=== PATIENT | female | born 1935 | race Asian ===

== ENCOUNTER 2018-02-02 19:24 | Observation (INO) | payer MEDICARE ==
[~2018-02-02] VITALS: Ht 162.6 cm; Wt 53.2 kg
[2018-02-02 21:00] LABS: Anion Gap 11 mmol/L (6-16); Blood Urea Nitrogen 20 mg/dL (8-24); Bun/Creatinine Ratio 28.9 (12.0-20.0); CO2, Blood 24 mmol/L (21-32); Calcium, Blood 8.1 mg/dL (8.5-10.1); Chloride, Blood 108 mmol/L (98-108); Creatinine, Blood 0.69 mg/dL (0.40-1.00); Glomerular Filtration Rate >60 (60-); Glucose, Blood 99 mg/dL (70-99); Magnesium, Blood 2.2 mg/dL (1.6-2.4); Potassium, Blood 3.8 mmol/L (3.5-5.5); Sodium, Blood 143 mmol/L (136-145); Troponin I <0.015 ng/mL (0.000-0.040)
[2018-02-02] MEDS ORDERED: ALEN70 PO (23:10)
[2018-02-02] MEDS ORDERED: ALPR.5 PO (23:11)
[2018-02-02] MEDS ORDERED: ASCO500 PO (23:12)
[2018-02-02] MEDS ORDERED: AMLO10 PO (23:12)
[2018-02-02] MEDS ORDERED: CLOP75 PO (23:13)
[2018-02-02] MEDS ORDERED: VITAMIN D-32000 UNIT PO (23:13)
[2018-02-02] MEDS ORDERED: VITAMIN B-121000 MCG PO (23:14)
[2018-02-02] MEDS ORDERED: DIPH50 PO (23:14)
[2018-02-02] MEDS ORDERED: IBUP800 PO (23:15)
[2018-02-02] MEDS ORDERED: Isosorbide Mono30 MG PO (23:16)
[2018-02-02] MEDS ORDERED: MOME.1TO (23:17)
[2018-02-02] MEDS ORDERED: NITR.6SL SL (23:23)
[2018-02-02] MEDS ORDERED: Omeprazole20 M1 (23:24)
[2018-02-02] MEDS ORDERED: OMEG1CAP30 (23:24)
[2018-02-02] MEDS ORDERED: PROP10 PO (23:25)
[2018-02-02] MEDS ORDERED: PROM25 PO (23:25)
[2018-02-02] MEDS ORDERED: VALS80 PO (23:26)
[2018-02-02] MEDS ORDERED: TERA5 PO (23:26)
[2018-02-02] MEDS ORDERED: Flonase 0.05% N16 GM (23:27)
[2018-02-02] MEDS ORDERED: MELA3 PO (23:27)
[2018-02-02] MEDS ORDERED: Allegra-D 12 H1 EACH PO (23:28)
[2018-02-03 07:33] LABS: Anion Gap 10 mmol/L (6-16); Blood Urea Nitrogen 12 mg/dL (8-24); Bun/Creatinine Ratio 20.9 (12.0-20.0); CO2, Blood 22 mmol/L (21-32); Chloride, Blood 109 mmol/L (98-108); Creatinine, Blood 0.57 mg/dL (0.40-1.00); Glomerular Filtration Rate >60 (60-); Glucose, Blood 122 mg/dL (70-99); Potassium, Blood 3.6 mmol/L (3.5-5.5); Sodium, Blood 141 mmol/L (136-145); Troponin I <0.015 ng/mL (0.000-0.040)
[2018-02-03 07:45] LABS: Mean Platelet Volume 8.5 fL (9.1-12.4); Platelet Count 327 K/mm3 (150-400)
[2018-02-03 08:02] LABS: International Normalized Ratio 0.97; Prothrombin Time Results 10.1 Sec (9.7-11.5)
[2018-02-03 15:43] LABS: D-Dimer, Quantitative 0.72 mg/L FEU (0.00-0.52)
[2018-02-04 05:44] LABS: Source, Urine Clean Catch
[2018-02-04 05:45] LABS: Bilirubin, Urine Neg (Neg); Blood, Urine 3+ (Neg); Glucose Qualitative, Urine Neg (Neg); Ketones, Urine Neg (Neg); Leukocyte Esterase, Urine 1+ (Neg); Nitrite, Urine Neg (Neg); Protein, Urine 4+ (Neg); Urobilinogen, Urine NORM (Normal)
[2018-02-04 05:47] LABS: Appearance, Urine Hazy (Clear); Color, Urine Pale Yellow (P-Yellow)
[2018-02-04 05:56] LABS: Bacteria Many /hpf; Squamous Epithelial Cells Not Seen /hpf (Few)
[2018-02-04] MEDS ORDERED: HYDCHL25 PO (11:27)
[2018-02-04] MEDS ORDERED: Calcitrate + D1 TAB PO (11:30)
== END 2018-02-04 11:52 | disposition home or self-care (01) ==
LOC: ER 19:24 → PCU 19:25
PROVIDERS: Emergency Medicine; Internal Medicine
DX: R55 Syncope and collapse (principal); T46.3X5A Adverse effect of coronary vasodilators, initial encounter; Y92.9 Unspecified place or not applicable; R07.9 Chest pain, unspecified; I10 Essential (primary) hypertension; I44.7 Left bundle-branch block, unspecified; I35.1 Nonrheumatic aortic (valve) insufficiency; G25.0 Essential tremor; R79.89 Other specified abnormal findings of blood chemistry; K21.9 Gastro-esophageal reflux disease without esophagitis; R91.8 Other nonspecific abnormal finding of lung field; Z79.899 Other long term (current) drug therapy; Z88.8 Allergy status to other drugs, medicaments and biological substances; Z85.038 Personal history of other malignant neoplasm of large intestine
CPT/HCPCS: 36415; 71260; 80048; 81001; 82947; 83735; 83880; 84484; 85049; 85379; 85610; 85730; 93005; 93010; 93306; 96361; 96365; 96366; 96376; 99285; G0378; J1644; J7030; J7040; Q9967